=== PATIENT | female | born 1955 | race American Indian/Alaskan Native ===

== ENCOUNTER 2018-09-17 13:18 | Day surgery (SDC) | payer MEDICARE ==
[2018-09-17] MEDS ORDERED: NACL 0.9% 1000 ML 1,000 ML IV SCH (14:00)
[2018-09-17] MEDS ORDERED: WATER FOR IRRIG STERILE IR ONE (14:02)
--- NOTE | 2018-09-17 14:03 | Anesthesia Consultation ---
Anesthesia Consult and Med Hx Date of service: 09/17/18 - Airway Anesthetic Teeth Evaluation: Edentulous ROM Head & Neck: Adequate Mental/Hyoid Distance: Adequate Mallampati Class: Class II Intubation Access Assessment: Probably Good - Pulmonary Exam CTA: Yes - Cardiac Exam Cardiac Exam: RRR - Pre-Operative Health Status ASA Pre-Surgery Classification: ASA3 Proposed Anesthetic Plan: MAC - Pulmonary Hx Sleep Apnea: Yes - Cardiovascular System Hx Hypertension: Yes - Endocrine Hx Renal Disease: Yes Hx End Stage Renal Disease: Yes Hx Non-Insulin Dependent Diabetes: Yes - Other Systems Hx Obesity: Yes
--- NOTE | 2018-09-17 14:04 | Anesthesia Day of Surgery ---
Anesthesia Day of Surgery - Day of Surgery Patient Examined: Yes Patient H&P Reviewed: Yes Patient is NPO: Yes
[2018-09-17] MEDS ORDERED: WATER FOR IRRIG STERILE ONE (14:28)
--- NOTE | 2018-09-17 14:37 | Operative Report ---
Operative Report Operative Report: Date of procedure: 09/17/2018 Procedure: Colonoscopy Attending physician: Jesus Alberto Moody MD Pressing Department Supervisor: Jesus Alberto Moody MD Indication: Patient is a 63-year-old female who presents for screening colonoscopy. Patient also has a past personal history of colon polyps. This colonoscopy serves to evaluate patient so that treatment may be directed based on the findings. Consent: Informed consent was obtained after advising the patient and family regarding nature of this procedure, its indications, potential benefits as well as possible complications including but not limited to bleeding perforation and adverse reaction to medication, infection as well as other cardiopulmonary complications. An informed written and verbal consent was then obtained after due opportunity was provided for questions and answers. Monitoring: Patient was monitored continuously with pulse oximetry and electrocardiographic recordings as well as blood pressure recordings. Vital signs remained stable throughout this procedure with no untoward events. Preoperative assessment: Patient was assessed immediately prior to this procedure for capacity to tolerate monitored anesthesia care and moderate sedation as well as general anesthesia. Patient's ASA classification is 2, Mallampati class is 2, Hyomental distance is 3. Instrument: Intappn video colonoscope Medications: Propofol given intravenously in divided doses. For details please refer to anesthesia records. Description of procedure: Patient was placed in the left lateral decubitus position after achieving sedation, a digital rectal examination was performed following which the colonoscope was introduced into the anal verge and advanced to the cecum which was identified by the cecal valve, the appendiceal orifice, as well as by the cecal strap and direct transillumination. The colonoscope was subsequently withdrawn with careful inspection of all mucosal surfaces. Patient tolerated this procedure well and was subsequently taken to the recovery room. The following findings were noted. Findings: The colonoscopic preparation was poor. Patient had substantial retained thick liquid stool in all segments of the colon. Patient had diverticulosis in the ascending colon descending colon and sigmoid colon. On the retroflex view at the anal verge, patient had internal hemorrhoids. Impression: Poor colonoscopic preparation Internal hemorrhoids. Plan: Follow pathology report. Colonic Diverticulosis. High-fiber diet. Repeat colonoscopy within 1 year due to poor colonoscopic preparation
--- NOTE | 2018-09-17 14:38 | Discharge Summary ---
Short Stay Discharge Plan Activity: advance as tolerated Weight Bearing Status: Weight Bear as Tolerated Diet: regular Follow up with: ADY GRANGER MD [Primary Care Provider] - 7 Days
[2018-09-17] MEDS ORDERED: DIPRIVAN 10 MG/ML IV ONE ×2 (14:50)
[2018-09-17 15:31] VITALS: BP 161/70
== END 2018-09-17 13:19 | disposition home or self-care (01) ==
LOC: GIO 13:18
PROVIDERS: ATTEND Internal Medicine Gastroenterology
DX: K64.8 Other hemorrhoids (principal); K57.30 Diverticulosis of large intestine without perforation or abscess without bleeding; R63.4 Abnormal weight loss; K21.9 Gastro-esophageal reflux disease without esophagitis; I12.0 Hypertensive chronic kidney disease with stage 5 chronic kidney disease or end stage renal disease; E11.22 Type 2 diabetes mellitus with diabetic chronic kidney disease; N18.6 End stage renal disease; G47.30 Sleep apnea, unspecified; E66.9 Obesity, unspecified; Z68.41 Body mass index [BMI] 40.0-44.9, adult; Z99.2 Dependence on renal dialysis; Z98.890 Other specified postprocedural states; Z86.010 Personal history of colon polyps; Z79.899 Other long term (current) drug therapy
CPT/HCPCS: 45378; J2704; J7030